=== PATIENT | male | born 1940 | race Native Hawaiian/Other Pacific Islander ===

== ENCOUNTER 2018-05-05 22:03 | Emergency (ER) | payer OTHER, MEDICARE ==
[2018-05-05 22:13] VITALS: TEMP 97.4; O2SAT 98
--- NOTE | 2018-05-05 22:56 | C.PDOC ---
History Of Present Illness 77 year old male presents to the ER after he slipped off a chair at work and hit his left lower back. Patient is currently complaining of pain to the left lower back. Denies dizziness, weakness, or numbness. Time Seen by Provider: 05/05/18 22:12 Chief Complaint (Nursing): Lower Extremity Problem/Injury History Per: Patient History/Exam Limitations: no limitations Onset/Duration Of Symptoms: Mins Current Symptoms Are (Timing): Still Present Recent travel outside of the [place]: No Past Medical History Reviewed: Historical Data, Nursing Documentation, Vital Signs Vital Signs: Last Vital Signs Temp 97.4 F L 05/05/18 22:09 Pulse 65 05/05/18 22:09 Resp 20 05/05/18 22:09 BP 130/80 05/05/18 22:09 Pulse Ox 98 05/05/18 22:09 - Medical History PMH: HTN Family History: States: Unknown Family Hx - Social History Hx Tobacco Use: No Hx Alcohol Use: No Hx Substance Use: No - Immunization History Hx Tetanus Toxoid Vaccination: No Hx Influenza Vaccination: Yes Hx Pneumococcal Vaccination: Yes Review Of Systems Musculoskeletal: Positive for: Back Pain (Left lower) Neurological: Negative for: Weakness, Numbness, Dizziness Physical Exam - Physical Exam Appears: Non-toxic Skin: Normal Color, Warm, Dry Head: Atraumatic, Normacephalic Eye(s): bilateral: Normal Inspection Back: No Vertebral Tenderness, Paraspinal Tenderness (Left gluteal area) Extremity: Normal ROM (x4), No Deformity, Other (No hip tenderness) Neurological/Psych: Oriented x3, Normal Speech, Normal Motor, Normal Sensation Gait: Steady ED Course And Treatment O2 Sat by Pulse Oximetry: 98 (Room air) Pulse Ox Interpretation: Normal - Other Rad Saccrum/Coccyx X-ray X-Ray: Interpreted by Me, Viewed By Me Interpretation: No acute fracture or dislocation. Progress Note: Saccrum/Coccyx x-ray ordered, results were negative. Motrin administered for pain. Patient is ambulatory in the ER with steady gait, vitals are stable, will discharge home with instructions to follow up with PMD or return if symptoms worsen. Patient is aware that he will be called back if any discrepancy is found in the x-ray. Disposition Counseled Patient/Family Regarding: Diagnosis, Need For Followup, Rx Given - Disposition Disposition: HOME/ ROUTINE Disposition Time: 22:54 Condition: STABLE Additional Instructions: Continue tylenol or motrin for pain Follow up with PMD Return to ER if worse Instructions: Contusion (DC) Forms: [facility] ([place]ese) - Clinical Impression Clinical Impression: Left buttock pain, Status post fall - PA / BPM DEVELOPER / Resident Statement MD/DO has reviewed & agrees with the documentation as recorded. - Scribe Statement The provider has reviewed the documentation as recorded by the Scribdarlene Mae All medical record entries made by the Angelicaibdarlene were at my direction and personally dictated by me. I have reviewed the chart and agree that the record accurately reflects my personal performance of the history, physical exam, medical decision making, and the department course for this patient. I have also personally directed, reviewed, and agree with the discharge instructions and disposition.
[2018-05-05 23:02] VITALS: BP 118/78; PULSE 78; RESP 14
--- NOTE | 2018-05-06 08:00 | RAD ---
Date of service: 05/05/2018 PROCEDURE: Radiographs of the Sacrum and Coccyx HISTORY: PAIN BUTTOCKS,/ COCCYX SP FALL COMPARISON: None available. TECHNIQUE: Frontal and lateral views of the sacrum and coccyx FINDINGS: BONES: No acute fracture or destructive bony lesion identified involving the sacrum or coccyx.. SACROILIAC JOINTS: Moderate degenerative sclerosis appreciated at the bilateral sacroiliac joints as well as incidentally at the bilateral hip joints. 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 IMPRESSION: No definite fracture or destructive bony lesion identified involving the sacrum or coccyx.
== END 2018-05-05 23:02 | disposition home or self-care (01) ==
LOC: C.ER 22:03
DX: M54.5 Low back pain (principal); W07.XXXA Fall from chair, initial encounter; Y92.89 Other specified places as the place of occurrence of the external cause; Y99.0 Civilian activity done for income or pay

== ENCOUNTER 2018-08-17 04:13 | Emergency (ER) | payer OTHER, MEDICARE ==
[2018-08-17 04:45] VITALS: O2SAT 99
--- NOTE | 2018-08-17 04:59 | C.PDOC ---
History Of Present Illness 77 year old male presents to the ED c/o left lower back pain since yesterday that has been worsening today. Patient reports taking Motrin with minimal relief, took Motrin again last night at 01:00. Patient denies fever, chills, nausea, vomit, diarrhea, rash, change in urination. Time Seen by Provider: 08/17/18 04:31 Chief Complaint (Nursing): Male Genitourinary History Per: Patient History/Exam Limitations: no limitations Onset/Duration Of Symptoms: Days Current Symptoms Are (Timing): Worse Pain Scale Rating Of: 4 Quality Of Discomfort: "Pain" Associated Symptoms: denies: Nausea, Vomiting, Diarrhea, Urinary Symptoms Recent travel outside of the [place]: No Additional History Per: Patient Past Medical History Reviewed: Historical Data, Nursing Documentation, Vital Signs Vital Signs: Last Vital Signs Temp 98 F 08/17/18 04:17 Pulse 75 08/17/18 04:17 Resp 20 08/17/18 04:17 BP 156/90 H 08/17/18 04:17 Pulse Ox 99 08/17/18 04:17 Primary Care Provider: Non [facility] Provider, - Medical History PMH: HTN Surgical History: No Surg Hx Family History: States: Unknown Family Hx - Social History Hx Tobacco Use: No Hx Alcohol Use: No Hx Substance Use: No - Immunization History Hx Tetanus Toxoid Vaccination: No Hx Influenza Vaccination: Yes Hx Pneumococcal Vaccination: Yes Review Of Systems Constitutional: Negative for: Fever, Chills, Weakness ENT: Negative for: Mouth Swelling Respiratory: Negative for: Cough, Shortness of Breath Gastrointestinal: Negative for: Vomiting, Diarrhea Genitourinary: Negative for: Dysuria, Hematuria Musculoskeletal: Positive for: Back Pain Skin: Negative for: Rash Neurological: Negative for: Weakness, Numbness, Headache Physical Exam - Physical Exam Appears: Well, Non-toxic, No Acute Distress Skin: Normal Color, Warm, Dry, No Rash Head: Atraumatic, Normacephalic Eye(s): bilateral: Normal Inspection, PERRL, EOMI Oral Mucosa: Moist Neck: Normal ROM, Supple Chest: Symmetrical Cardiovascular: Rhythm Regular Respiratory: No Accessory Muscle Use, Other (normal inspiratory effort) Gastrointestinal/Abdominal: Soft, No Tenderness, No Distention Back: No CVA Tenderness, Straight Leg Raising (left leg (+)), Other (ambulating with upright steady gait) Extremity: Bilateral: Atraumatic, Normal ROM Neurological/Psych: Oriented x3, Normal Speech ED Course And Treatment O2 Sat by Pulse Oximetry: 99 (ON RA) Pulse Ox Interpretation: Normal - CT Scan/US CT abd/pelvis Other Rad Studies (CT/US): Read By Radiologist, Radiology Report Reviewed CT/US Interpretation: CT SCAN OF THE ABDOMEN AND PELVIS WITHOUT ORAL OR IV CONTRAST. CLINICAL INDICATION: Lower abdominal pain. TECHNIQUE: Axial and reformatted sagittal and coronal images of the abdomen pelvis obtained without IV contrast administration. COMPARISON: None. FINDINGS: Fat containing left inguinal hernia without incarceration. Mild prostatomegaly. Prostatic calcifications. Mild diffuse thickening of the wall of the bladder. Under distention, chronic bladder obstruction versus mild cystitis. Uncomplicated colonic diverticulosis. Cholelithiasis without acute cholecystitis. Atherosclerotic, tortuous ectatic aortoiliac arteries. Right renal nonobstructing stones with the largest measuring 4 mm. Uncomplicated colonic diverticulosis. Moderate amount of fecal residue in the large bowel suggestive of constipation. Moderate diffuse spondylosis. Normal unenhanced liver. Normal extrahepatic biliary system. Normal unenhanced spleen. Normal pancreas. . Normal bilateral adrenal glands. Normal size of the right kidney. There is no right renal mass. There are no right renal calculi. There is no right hydronephrosis. Normal visualized right ureter. Normal size of the left kidney. There is no left renal mass. There are no left renal calculi. There is no left hydronephrosis. Normal visualized left ureter. Normal visualized stomach. Normal small intestine. Normal colon. The appendix is visualized and appears normal. There is no demonstrated peritoneal fluid. Normal inferior vena cava. Normal retroperitoneum. . There is no pelvic mass lesion or lymphadenopathy. There is no pelvic fluid. . IMPRESSION: Fat containing left inguinal hernia without incarceration. Mild prostatomegaly. Prostatic calcifications. Mild diffuse thickening of the wall of the bladder. Under distention, chronic bladder obstruction versus mild cystitis. Uncomplicated colonic diverticulosis. Cholelithiasis without acute cholecystitis. Atherosclerotic, tortuous ectatic aortoiliac arteries. Right renal nonobstructing stones with the largest measuring 4 mm. Uncomplicated colonic diverticulosis. Moderate amount of fecal residue in the large bowel suggestive of constipation. . Electronically signed on August 17, 2018 5:42:08 AM EDT by: Mary Ellen Baer M.D., Certified by IDANIA, SIRI, Neuroradiology. Medical Decision Making Medical Decision Making: Plan: * CT scan * UA Patient refused pain medications. Patient will get CT scan due to his pain to r/u kidney stone. patient's ct scan did not reveal any acute pathology. the patient refused any pain meds prior to discharge. Disposition Counseled Patient/Family Regarding: Diagnosis, Need For Followup - Disposition Disposition: HOME/ ROUTINE Disposition Time: 06:10 Condition: STABLE Instructions: Low Back Pain (DC) Forms: General Discharge Instructions, [facility] (Cro[place]ian), Work Excuse - Clinical Impression Clinical Impression: Low back pain - PA / POURER BUGGY LADLE / Resident Statement MD/DO has reviewed & agrees with the documentation as recorded. - Scribe Statement The provider has reviewed the documentation as recorded by the Scribe Andre Francois All medical record entries made by the Scribe were at my direction and personally dictated by me. I have reviewed the chart and agree that the record accurately reflects my personal performance of the history, physical exam, medical decision making, and the department course for this patient. I have also personally directed, reviewed, and agree with the discharge instructions and disposition.
[2018-08-17 05:19] LABS: URINE AMORPHOUS SEDIMENT RARE /ul (<OCC); URINE BILIRUBIN NEGATIVE (NEGATIVE); URINE BLOOD NEGATIVE (NEGATIVE); URINE CLARITY Hazy (Clear); URINE COLOR Yellow (YELLOW); URINE GLUCOSE (UA) NORMAL (Normal); URINE LEUKOCYTE ESTERASE NEG Leu/uL (Negative); URINE PROTEIN NEGATIVE (NEGATIVE); URINE UROBILINOGEN NORMAL mg/dL (0.2-1.0)
[2018-08-17 05:48] VITALS: BP 148/80; PULSE 67; RESP 17; TEMP 98.1
--- NOTE | 2018-08-17 07:12 | CT ---
CT abdomen and pelvis HISTORY: Low back pain. COMPARISON: None available. TECHNIQUE: Multiple contiguous axial images were performed through the abdomen and pelvis without the use of intravenous contrast. Subsequently, sagittal and coronal reformatted images were obtained. This CT exam was performed using one or more of the following dose reduction techniques: Automated exposure control, adjustment of the mA and/or kV according to patient size, and/or use of iterative reconstruction technique. Findings: Emphysematous and bronchiectatic changes at the lung bases. No pleural or pericardial effusion. Liver is preserved. Somewhat contracted gallbladder with a suggestion of cholelithiasis. Correlation with right upper quadrant abdominal ultrasound may be helpful if clinically indicated. Spleen is preserved. Adrenal glands are preserved. Mild fatty atrophy of the pancreas. Small hiatal hernia. Atherosclerotic calcification and plaque within the aorta. Tortuous and ectatic aorta and aorta iliac arteries. Right kidney: Scattered right renal subcentimeter calculi; for example, in the midpole measuring 5 millimeters. No gross hydronephrosis. Left Kidney: No calculi or hydronephrosis. Mildly thick-walled urinary bladder. Clinical correlation. Heterogeneous and prominent prostate measuring up to 5.2 centimeters with associated calcifications. Fecal retention in the colon. Few scattered colonic diverticuli. Appendix is visualized and is within normal limits. Few shotty para-aortic and inguinal lymph nodes. Fat containing left inguinal hernia. Degenerative changes in the spine. Impression: 1. Scattered right renal subcentimeter calculi; for example, in the midpole measuring 5 millimeters. No gross hydronephrosis. 2. Mildly thick-walled urinary bladder. Clinical correlation. 3. Heterogeneous and prominent prostate measuring up to 5.2 centimeters with associated calcifications. 4. Somewhat contracted gallbladder with a suggestion of cholelithiasis. Correlation with right upper quadrant abdominal ultrasound may be helpful if clinically indicated. 5. Small hiatal hernia. 6. Mild fatty atrophy of the pancreas. 7. Fat containing left inguinal hernia. 8. Fecal retention in the colon. Few scattered colonic diverticuli. A preliminary report was generated at 5:42 a.m. on 08/17/[address] Mary Ellen Baer from [employer].
== END 2018-08-17 06:18 | disposition home or self-care (01) ==
LOC: C.ER 04:13
DX: M54.5 Low back pain (principal)